=== PATIENT | female | born 1940 | race Caucasian/White ===

== ENCOUNTER 2017-12-09 23:35 | Emergency (ER) | payer MEDICARE, MEDICAID, SELFPAY ==
[2017-12-09 23:37] VITALS: BP 193/74; PULSE 73; RESP 20; TEMP 36.7; O2SAT 94; BMI 37.0
[2017-12-10 00:19] LABS: Absolute Lymphocyte Count 3.61 X10^3/ul (0.83-4.51); Absolute Neutrophil Count 13.8 X10^3/uL (2.0-7.7); Basophil# 0.03 X10^3/uL; Basophil% 0.2 % (0-1); Eosinophils% 1.1 % (0-5); Hematocrit 38.2 % (37-47); Hemoglobin 12.4 g/dl (12.0-15.0); Lymphocyte # 3.61 X10^3/ul (4.0); Lymphocyte % 19.1 % (19-41); Mean Corp Hgb Conc 32.5 g/gl (32-36); Mean Corpuscular Volume 86.2 fL (81-99); Mean Platelet Vol. 8.9 fl (6.2-12.0); Monocyte# 1.28 X10^3/uL; Monocyte% 6.8 % (0-10); Neutrophil # 13.77 X10^3/uL (2.7-7.7); Neutrophil % 72.5 % (47-70); POSITIVE COUNT NO; POSITIVE DIFFERENTIAL NO; POSITIVE MORPHOLOGY NO; Platelet Count 470 K/mm3 (150-450); RBC Distribution Width CV 13.6 % (11.6-14.6); RBC Distribution Width SD 42.1 fl (35.1-43.9); Red Blood Count 4.43 M/mm3 (4.2-5.4)
[2017-12-10 00:33] LABS: Anion Gap 9 (5-15); BUN 18 mg/dL (7-18); BUN/Creat Ratio 19.1 RATIO (10-20); Calcium,Total 9.7 mg/dL (8.5-10.1); Chloride 109 mmol/L (98-107); Creatinine, Serum 0.94 mg/dL (0.55-1.02); EST Glomerular Filtration Rate 61 mL/min (>60); Est Glom Filt Rate - Afr Amer 74 mL/min (>60); Estimated Creatinine Clearance 40.27 ml/min; Glucose 116 mg/dL (74-106); Potassium 4.2 mmol/L (3.5-5.1); Sodium Level 143 mmol/L (136-145)
--- NOTE | 2017-12-10 00:34 | ED.RN ---
blood sugar 114.
[2017-12-10 00:36] LABS: Bedside Glucose 114 mg/dL (70-110)
[2017-12-10 00:42] LABS: Alcohol, Blood (Medical)-Serum < 3.0 mg/dL
--- NOTE | 2017-12-10 00:59 | EKG12_ITS ---
Test Reason : MENTAL HEALTH Blood Pressure : / mmHG Vent. Rate : 063 BPM Atrial Rate : 063 BPM P-R Int : 200 ms QRS Dur : 098 ms QT Int : 390 ms P-R-T Axes : 055 016 060 degrees QTc Int : 399 ms Normal sinus rhythm Normal ECG Confirmed by KUSH RDZ, KIT ([id number]), proposal editor GOLD LI ([id number] on 12/12/2017 1:31:55 PM Referred By: VANESSA Confirmed By:KIT CURRIE MD
[2017-12-10 01:20] LABS: Bacteria 0 SEEN /hpf (None Seen); Mucous, Urine 0 SEEN /hpf (<or=2+); Red Blood Cells-Urine 0 SEEN /hpf (0-5); Squamous Epithelial Cells - UA 0 SEEN /hpf (5-10); White Blood Cells 0 SEEN /hpf (0-5)
[2017-12-10 01:21] LABS: Color, Urine Yellow (Yellow); Glucose, Dipstick Normal (Normal); Ketone-Dipstick Negative (Negative); Leukocyte Esterase-Dipstick Negative /ul (Negative); Nitrite-Dipstick Negative (Negative); Occult Blood-Urine Negative /ul (Negative); Protein-Dipstick Negative (Negative); Urine Bilirubin Dipstick Negative (Negative); Urine Clarity Clear (Clear); Urine Urobilinogen Normal (Normal); Urine pH 6.5 (5.0 - 8.0)
[2017-12-10 01:28] LABS: Amphetamine Urine VISTA NEGATIVE (<1000 ng/mL); Barbiturate Urine VISTA NEGATIVE (< 200 ng/mL); Benzodiazepine Urine VISTA NEGATIVE (< 200 ng/mL); Cocaine Urine VISTA NEGATIVE (< 300 ng/mL); Ecstacy Urine VISTA NEGATIVE (< 500 ng/mL); Methadone Urine VISTA NEGATIVE (< 300 ng/mL); PCP Urine VISTA NEGATIVE (< 25 ng/mL); THC Urine VISTA NEGATIVE (< 50 ng/mL); Vista UDS pH Range 6
[2017-12-10 02:10] LABS: AST(SGOT) 11 U/L (15-37); Alanine Aminotransfer ALT/SGPT 14 U/L (13-56); Albumin, Serum 3.5 g/dL (3.2-5.0); Alkaline Phosphatase 117 U/L (45-117); Bilirubin, Direct 0.06 mg/dL (0.00-0.30); Globulin 3.1 g/dL (2.2-4.2); Protein, Total 6.6 g/dL (6.4-8.2)
--- NOTE | 2017-12-10 02:37 | NURSING ---
MADE CONTACT WITH SUZI AT [facility], FAXED ALL REPORTS REQUESTED BY HER TO ADMIT THIS PT TO THEIR FACILITY, FAX WAS RECEIVED AND WE AER WAITING FOR A CALL OF ACCEPTANCE
--- NOTE | 2017-12-10 02:40 | ED.VISSUMM ---
- ER Visit Summary Date of Service: 12/10/17 Chief Complaint: [Depression and suicidal ideation] History of Present Illness: The patient is a 77 F [presents to the emergency department from [facility]care facility via EMS. Patient was sent in for medical clearance for transfer to [facility]. Patient apparently has been feeling depressed and requesting to . Patient admits that she just wants to . Patient states that she has been feeling depressed for years ever since she was placed in a longterm. Patient is a very poor historian. Patient does have a history of dementia, bipolar disease, diabetes, hypertension, hypothyroidism, and anemia. Patient denies recent illness. Patient denies chest pain, abdominal pain, shortness of breath, urinary symptoms, headache, or any other physical ailments.] Physical Examination: [HEENT-PERRLA, EOMI. Cranial nerves II through XII grossly intact. TMs clear. Mucous membranes moist. No adenopathy. Cardiovascular-regular rate and rhythm without murmur or ectopy Lungs-clear to auscultation, chest wall stable without crepitus or subcu emphysema Abdomen-normoactive bowel sounds, soft, nontender, no rebound or rigidity, no peritoneal signs. Extremities-intact ?4, normal range of motion, normal pulses, atraumatic] Test Results: [CBC with differential obtained showed an elevated white count of 19,000, hemoglobin 12, hematocrit 38, platelets 470. Chemistries unremarkable. Urinalysis was normal. EKG shows sinus rhythm with a rate of 63 bpm. Alcohol was negative and tox screen was negative. LFTs were unremarkable.] Emergency Department Course and Treatment: [Patient has an elevated white blood cell count and on her last visit to this emergency department she also had an elevated white blood cell count. I do not see any evidence of infection. Patient was medically cleared for transfer to [facility]] Treatment Plan: [Transfer to [facility] as currently plan will be to transfer to [facility] and awaiting acceptance.] Disposition: [Transfer] Impression: [Depression Suicidal ideation] This note was generated with [employer] dictation software. It may contain incorrect words, spelling, and punctuation that were not noted in review of the chart prior to signing ED Disposition - Plan for ED Patient: Chief Complaint: Suicidal Referrals: Barbara Dunbar MD [Primary Care Provider] -
--- NOTE | 2017-12-10 02:43 | ED.DCSUM_ITS ---
- ER Visit Summary Date of Service: 12/10/17 Chief Complaint: [Depression and suicidal ideation] History of Present Illness: The patient is a 77 F [presents to the emergency department from [facility] via EMS. Patient was sent in for medical clearance for transfer to [facility]. Patient apparently has been feeling depressed and requesting to . Patient admits that she just wants to . Patient states that she has been feeling depressed for years ever since she was placed in a [facility]. Patient is a very poor historian. Patient does have a history of dementia, bipolar disease, diabetes, hypertension, hypothyroidism, and anemia. Patient denies recent illness. Patient denies chest pain, abdominal pain, shortness of breath, urinary symptoms , headache, or any other physical ailments.] Physical Examination: [HEENT-PERRLA, EOMI. Cranial nerves II through XII grossly intact. TMs clear. Mucous membranes moist. No adenopathy. Cardiovascular-regular rate and rhythm without murmur or ectopy Lungs-clear to auscultation, chest wall stable without crepitus or subcu emphysema Abdomen-normoactive bowel sounds, soft, nontender, no rebound or rigidity, no peritoneal signs. Extremities-intact ?4, normal range of motion, normal pulses, atraumatic] Test Results: [CBC with differential obtained showed an elevated white count of 19,000, hemoglobin 12, hematocrit 38, platelets 470. Chemistries unremarkable. Urinalysis was normal. EKG shows sinus rhythm with a rate of 63 bpm. Alcohol was negative and tox screen was negative. LFTs were unremarkable.] Emergency Department Course and Treatment: [Patient has an elevated white blood cell count and on her last visit to this emergency department she also had an elevated white blood cell count. I do not see any evidence of infection. Patient was medically cleared for transfer to [facility]] Treatment Plan: [Transfer to [facility] as currently plan will be to transfer to [facility] and awaiting acceptance.] Disposition: [Transfer] Impression: [Depression Suicidal ideation] This note was generated with [employer] dictation software. It may contain incorrect words, spelling, and punctuation that were not noted in review of the chart prior to signing ED Disposition - Plan for ED Patient: Chief Complaint: Suicidal Referrals: Barbara Dunbar MD [Primary Care Provider] -
[2017-12-10 03:24] VITALS: BP 204/98; PULSE 74; RESP 20; O2SAT 97
--- NOTE | 2017-12-10 05:15 | NURSING ---
CALLED [facility] TO CHECK THE STATUS OF THIS ADMISSION, SPOKE TO VJ ARCHER IS STILL WAITING FOR THE DR TO ACCEPT. SHE EXPECTS ACCEPTANCE AROUND 06:30
[2017-12-10 05:20] VITALS: RESP 14
[2017-12-10 06:06] VITALS: RESP 12
[2017-12-10] MEDS: Oxybutynin 5 MG Tablet PO (07:22)
[2017-12-10] MEDS: Acetaminophen 325 MG Tablet 650 MG PO (07:23)
[2017-12-10] MEDS: LINAGLIPTIN 5 MG TABLET PO (07:23)
[2017-12-10] MEDS: Gabapentin 600 MG Tablet PO (07:23)
[2017-12-10] MEDS: Montelukast 10 MG Tablet PO (07:23)
[2017-12-10] MEDS: Lisinopril 10 MG Tablet PO (07:23)
[2017-12-10] MEDS: busPIRone 15 MG TABLET PO (07:24)
[2017-12-10] MEDS: Calcium Carbonate 500 MG Tablet PO (07:24)
[2017-12-10] MEDS: Loratadine 10 MG Tablet PO (07:24)
[2017-12-10] MEDS: Sertraline 100 MG Tablet PO (07:25)
[2017-12-10] MEDS: Pramipexole Di-HCl 0.25 MG Tablet PO (07:25)
[2017-12-10 07:45] LABS: Bedside Glucose 147 mg/dL (70-110)
[2017-12-10] MEDS: Metoprolol Tartrate 25 MG Tablet 50 MG PO (07:47)
[2017-12-10] MEDS: Pantoprazole Sodium 40 MG Tablet PO (07:47)
[2017-12-10] MEDS: RisperiDONE 0.5 MG Tablet PO (07:47)
[2017-12-10] MEDS: Gabapentin 100 MG Capsule PO (07:47)
[2017-12-10 08:15] VITALS: BP 173/62; PULSE 79; RESP 16; O2SAT 95
== END 2017-12-10 08:55 ==
PROVIDERS: Emergency Provider Emergency Medicine; Family Provider Family Medicine; PCP Family Medicine
DX: F31.9 Bipolar disorder, unspecified (principal); R45.851 Suicidal ideations; I10 Essential (primary) hypertension; E11.9 Type 2 diabetes mellitus without complications; E03.9 Hypothyroidism, unspecified; D64.9 Anemia, unspecified; F03.90 Unspecified dementia, unspecified severity, without behavioral disturbance, psychotic disturbance, mood disturbance, and anxiety; Z79.84 Long term (current) use of oral hypoglycemic drugs; Z79.899 Other long term (current) drug therapy
CPT/HCPCS: 36415; 80048; 80076; 80307; 80320; 81001; 82962; 85025; 93005; 99285; G0480